=== PATIENT | male | born 1980 | race American Indian/Alaskan Native ===

== ENCOUNTER 2018-01-18 17:41 | Emergency (ER) | payer OTHER ==
[2018-01-18] MEDS ORDERED: MOTRIN PO ONE (18:01)
[2018-01-18] MEDS ORDERED: MOTRIN ONE (18:03)
--- NOTE | 2018-01-18 21:17 | Emergency Department Report ---
ED Back Pain/Injury HPI - General Chief Complaint: Back Pain/Injury Stated Complaint: BACK PAIN Time Seen by Provider: 01/18/18 21:02 Source: patient Limitations: No Limitations - History of Present Illness Initial Comments: Patient reports that he reinjured his back after lifting heavy object a couple days ago. He says that he has a pinched nerve in his upper back. Pain is 10 out of 10 and a can. He said he is having back spasm and pain. He has a history of sciatica with chronic back pain. History of diabetes. Denies any urinary burning, frequency or urgency. Pain is spasm and feels achy to his upper back. Denies any neck pain or any recent trauma except that he said he was lifting heavy object. Denies any numbness or tingling in his extremities. He states that he took [id number] pain medication but it is not helping and he does not have a primary care doctor. Denies any fever or chills. MD Complaint: back pain Onset/Timin -: days(s) Similar Symptoms Previously: Yes Place: home Radiation: none Severity: severe Severity scale (0 -10): 10 Quality: aching Consistency: constant Improves With: none Worsens With: none Context: while lifting Associated Symptoms: denies: confusion, weakness, chest pain, numbness, difficulty walking, cough, difficulty urinating, diaphoresis, incontinence, fever/chills, constipation, headaches, abdominal pain, loss of appetite, malaise , nausea/vomiting, rash, seizure, shortness of breath, syncope Treatments Prior to Arrival: other (otc medication) - Related Data Previous Rx's Medication Instructions Recorded Last Taken Type Cyclobenzaprine [Flexeril] 10 mg PO TID PRN #12 tablet 01/18/18 Unknown Rx traMADol [Ultram] 50 mg PO Q6HR PRN #12 tablet 01/18/18 Unknown Rx Allergies Allergy/AdvReac Type Severity Reaction Status Date / Time No Known Allergies Allergy Unverified 01/18/18 17:58 ED Review of Systems ROS: Stated complaint: BACK PAIN Other details as noted in HPI Constitutional: denies: chills, fever Eyes: denies: eye pain, eye discharge, vision change ENT: denies: ear pain, throat pain, congestion Respiratory: denies: cough, shortness of breath, SOB with exertion, SOB at rest , stridor, wheezing Cardiovascular: denies: chest pain, palpitations, edema, syncope Gastrointestinal: denies: abdominal pain, nausea, vomiting, diarrhea, hematemesis, hematochezia Genitourinary: denies: urgency, dysuria Musculoskeletal: back pain. denies: joint swelling, arthralgia, myalgia Skin: denies: rash, lesions Neurological: denies: headache, weakness, numbness, paresthesias, confusion, abnormal gait, vertigo ED Past Medical Hx - Past Medical History Medical history: pneumonia RECURRENT BACK PAIN AND SCIATIA Surgical history: other (she reported that he has a history of right lung drained due to pneumonia) Psychiatric history: no pertinent history Family history: hypertension - Social History Smoking Status: Never Smoker Alcohol use: none Drug use: none ED Back Pain Physical Exam - Exam General: Vital signs noted. No distress. Alert and acting appropriately. This is a 37-year-old male well-nourished well-developed in no acute distress. Back/Abdomen: Yes Perithoracic Tenderness (left), No Abdominal Tenderness, No Perilumbar Tenderness, No Sacroiliac Tenderness, No Flank Tenderness, No Straight Leg Raise Pain Neuro: Yes Normal Sensation (patient has good color, movement, temperature and sensation to his extremities.), Yes Normal DTR's ( Reflexes 2+), Yes Normal Gait (No cce. + 2 pulses in all extremities, no neurovascular compromise), No Motor Weakness (normal gait) ED Course Vital Signs 01/18/18 01/18/18 17:54 18:03 Temperature 98.1 F Pulse Rate 79 Respiratory 16 18 Rate Blood Pressure 161/87 O2 Sat by Pulse 99 Oximetry - Reevaluation(s) Reevaluation #1: 01/18/18 21:34 Patient given Motrin 800 mg at 6:02 PM and pain has been relieved slightly so he was given Flexeril 10 mg by mouth and will be discharged home on Robaxin and Ultram. ED Medical Decision Making - Medical Decision Making This is a 29-year-old male here report that he was doing heavy lifting and and is having back pain to bilateral upper back. Assessment/plan 1: Left upper back strain-given Flexeril 10 mg by mouth and he received Motrin 800 mg by mouth in triage area. Pain is better patient will be sent home on Robaxin 2: Left upper back pain-better and will be sent home on Ultram. I discussed the patient is diagnosis and treatment plan and that he needs to follow up with orthopedic doctor for further evaluation and treatment of chronic back pain and he agrees. Patient is neurologically intact and discharged home in stable condition. Vital signs stable afebrile and given prescription for Ultram and Robaxin. Discharged from the ED in stable condition Critical care attestation.: If time is entered above; I have spent that time in minutes in the direct care of this critically ill patient, excluding procedure time. ED Disposition Clinical Impression: Muscle strain of upper back, Upper back pain on left side Disposition: DC- TO HOME OR SELFCARE Is pt being admited?: No Does the pt Need Aspirin: No Condition: Stable Instructions: Muscle Strain (ED), Chronic Back Pain (ED) Additional Instructions: Please follow up with orthopedic doctor as instructed Take Robaxin for back muscle strain but please do not drive or operate heavy machinery as his medication causes drowsiness Take Ultram for back pain but is not drive or operate heavy machinery as this medication causes drowsiness She worsens return to the emergency room otherwise follow-up with orthopedic and [facility] in 2-3 days Prescriptions: Cyclobenzaprine [Flexeril] 10 mg PO TID PRN #12 tablet PRN Reason: Muscle Spasm traMADol [Ultram] 50 mg PO Q6HR PRN #12 tablet PRN Reason: Pain Referrals: [facility] [Outside] - 2-3 Days JESSICA HILL MD [Staff Physician] - 2-3 Days Forms: Work/School Release Form(ED)
[2018-01-18] MEDS ORDERED: FLEXERIL PO ONE (21:33)
[2018-01-18 21:44] VITALS: BP 158/84
== END 2018-01-18 21:40 | disposition home or self-care (01) ==
LOC: ED 17:41
DX: S29.012A Strain of muscle and tendon of back wall of thorax, initial encounter (principal); G89.29 Other chronic pain; M54.32 Sciatica, left side; E11.9 Type 2 diabetes mellitus without complications; X50.0XXA Overexertion from strenuous movement or load, initial encounter; Y93.89 Activity, other specified; Y92.009 Unspecified place in unspecified non-institutional (private) residence as the place of occurrence of the external cause; Y99.8 Other external cause status
CPT/HCPCS: 99282

== ENCOUNTER 2018-01-22 22:21 | Emergency (ER) | payer OTHER ==
--- NOTE | 2018-01-23 03:32 | Emergency Department Report ---
ED Back Pain/Injury HPI - General Chief Complaint: Back Pain/Injury Stated Complaint: BACK PAIN/FINGER NUMBNESS Time Seen by Provider: 01/23/18 01:27 Source: patient Limitations: No Limitations - History of Present Illness Complaint: back pain -: Gradual Similar Symptoms Previously: No Place: home Radiation: none Severity: moderate Quality: aching Consistency: constant Improves With: none Worsens With: movement, sitting upright, walking Associated Symptoms: denies other symptoms. denies: weakness, chest pain, numbness, cough, incontinence, fever/chills, headaches, abdominal pain, rash, seizure, shortness of breath - Related Data Previous Rx's Medication Instructions Recorded Last Taken Type Cyclobenzaprine [Flexeril] 10 mg PO TID PRN #12 tablet 01/18/18 Unknown Rx traMADol [Ultram] 50 mg PO Q6HR PRN #12 tablet 01/18/18 Unknown Rx Meloxicam 15 mg PO BID #14 tablet 01/23/18 Unknown Rx Methocarbamol [Robaxin-750] 750 mg PO TID #21 tablet 01/23/18 Unknown Rx Allergies Allergy/AdvReac Type Severity Reaction Status Date / Time No Known Allergies Allergy Verified 01/22/18 22:32 ED Review of Systems ROS: Stated complaint: BACK PAIN/FINGER NUMBNESS Other details as noted in HPI Constitutional: denies: chills, fever Eyes: denies: eye pain, eye discharge, vision change ENT: denies: ear pain, throat pain Respiratory: denies: cough, shortness of breath, wheezing Cardiovascular: denies: chest pain, palpitations Endocrine: no symptoms reported Gastrointestinal: denies: abdominal pain, nausea, diarrhea Genitourinary: denies: urgency, dysuria Musculoskeletal: back pain. denies: joint swelling, arthralgia Skin: denies: rash, lesions Neurological: denies: headache, weakness, paresthesias Psychiatric: denies: anxiety, depression Hematological/Lymphatic: denies: easy bleeding, easy bruising ED Past Medical Hx - Past Medical History Hx Diabetes: Yes Additional medical history: RECURRENT BACK PAIN AND SCIATIA - Surgical History Additional Surgical History: RIGHT LUNG DRAINED R/T PNEUMONIA - Social History Smoking Status: Never Smoker Substance Use Type: None - Medications Home Medications: Home Medications Medication Instructions Recorded Confirmed Last Taken Type Cyclobenzaprine [Flexeril] 10 mg PO TID PRN #12 tablet 01/18/18 Unknown Rx traMADol [Ultram] 50 mg PO Q6HR PRN #12 tablet 01/18/18 Unknown Rx Meloxicam 15 mg PO BID #14 tablet 01/23/18 Unknown Rx Methocarbamol [Robaxin-750] 750 mg PO TID #21 tablet 01/23/18 Unknown Rx ED Physical Exam - General Limitations: No Limitations General appearance: alert, in no apparent distress - Head Head exam: Present: atraumatic, normocephalic - Eye Eye exam: Present: normal appearance, PERRL Pupils: Present: normal accommodation - ENT ENT exam: Present: mucous membranes moist - Neck Neck exam: Present: normal inspection, full ROM - Respiratory Respiratory exam: Present: normal lung sounds bilaterally. Absent: respiratory distress, wheezes, rales, accessory muscle use, decreased breath sounds - Cardiovascular Cardiovascular Exam: Present: regular rate, normal rhythm. Absent: systolic murmur, diastolic murmur, rubs, gallop - GI/Abdominal GI/Abdominal exam: Present: soft, normal bowel sounds. Absent: hypoactive bowel sounds, organomegaly, mass, bruit - Rectal Rectal exam: Present: deferred - Extremities Exam Extremities exam: Present: normal inspection, normal capillary refill - Back Exam Back exam: Present: normal inspection, tenderness, paraspinal tenderness. Absent: CVA tenderness (R), CVA tenderness (L), vertebral tenderness, rash noted - Expanded Back Exam Expanded Back exam: Negative Straight Leg Raising: Right, Left (neg seated slr) 1 - tenderness in this region. no rashes or abrasions. no swelling 2 - radiation pattern - Neurological Exam Neurological exam: Present: alert, oriented X3, CN II-XII intact, normal gait - Psychiatric Psychiatric exam: Present: normal affect, normal mood - Skin Skin exam: Present: warm, dry, intact, normal color. Absent: rash ED Course Vital Signs 01/22/18 22:32 Temperature 98 F Pulse Rate 100 H Respiratory 16 Rate Blood Pressure 152/103 O2 Sat by Pulse 98 Oximetry Critical care attestation.: If time is entered above; I have spent that time in minutes in the direct care of this critically ill patient, excluding procedure time. ED Disposition Clinical Impression: Muscle strain of upper back Disposition: DC-01 TO HOME OR SELFCARE Is pt being admited?: No Does the pt Need Aspirin: No Condition: Stable Referrals: PRIMARY CARE, [Primary Care Provider] - 3-5 Days
[2018-01-23] MEDS ORDERED: NORCO 5/325 PO STA (03:44)
[2018-01-23 04:00] VITALS: BP 139/95
== END 2018-01-23 03:58 | disposition home or self-care (01) ==
LOC: ED 22:21
DX: S29.012A Strain of muscle and tendon of back wall of thorax, initial encounter (principal); E11.9 Type 2 diabetes mellitus without complications; X50.1XXA Overexertion from prolonged static or awkward postures, initial encounter; Y93.89 Activity, other specified; Y99.8 Other external cause status; Y92.019 Unspecified place in single-family (private) house as the place of occurrence of the external cause
CPT/HCPCS: 99282